=== PATIENT | female | born 1990 | race Caucasian/White ===

== ENCOUNTER 2021-07-13 17:48 | Emergency (ER) | payer MEDICAID ==
[~2021-07-13] VITALS: Ht 170.2 cm; Wt 96.8 kg
[~2021-07-13 17:48] MED LIST: IBUP-1984 PO
[2021-07-13 18:05] VITALS: BP 116/80
== END 2021-07-13 21:08 | disposition left against medical advice (07) ==
LOC: ER 17:49
DX: M54.9 Dorsalgia, unspecified (principal); Z53.21 Procedure and treatment not carried out due to patient leaving prior to being seen by health care provider

== ENCOUNTER 2023-05-28 11:07 | Emergency (ER) | payer MEDICAID ==
[~2023-05-28] VITALS: Ht 170.2 cm; Wt 100.0 kg
[2023-05-28 11:33] VITALS: TEMP 98
[2023-05-28 12:40] VITALS: BP 128/94; PULSE 67; RESP 16; O2SAT 98
[2023-05-28] MEDS ORDERED: triamcinolone acetonide 0.5% cream 15gm TP SCH (20:00)
== END 2023-05-28 12:42 | disposition home or self-care (01) ==
LOC: ER 11:08
DX: T63.461A Toxic effect of venom of wasps, accidental (unintentional), initial encounter (principal); M79.89 Other specified soft tissue disorders; Z90.49 Acquired absence of other specified parts of digestive tract; Z98.890 Other specified postprocedural states; Y92.89 Other specified places as the place of occurrence of the external cause
CPT/HCPCS: 99283